=== PATIENT | female | born 1990 | race Caucasian/White ===

== ENCOUNTER 2016-12-30 21:43 | Emergency (ER) | payer BC ==
--- NOTE | 2016-12-30 22:31 | ED ---
Lower Extremity - HPI Summary HPI Summary: Patient was walking and inverted her left ankle. She had immediate pain but was able to hobble on it. It continued to be painful and became swollen so she came in for evaluation. She denies N/T. - History of Current Complaint Chief Complaint: EDExtremityLower Stated Complaint: LEFT ANKLE INJURY Time Seen by Provider: 12/30/16 21:51 Hx Obtained From: Patient Mechanism Of Injury: Twisted Onset of Pain: Immediate Onset/Duration: Hours Severity Initially: Mild Severity Currently: Moderate Pain Intensity: 4 Timing: Constant Location: Is Discrete @ - left ankle Character Of Pain: Dull, Aching, Stiffness Associated Signs And Symptoms: Positive: Swelling Aggravating Factor(s): Ambulation, Movement Able to Bear Weight: Yes - with pain - Allergies/Home Medications Allergies/Adverse Reactions: Allergies Allergy/AdvReac Type Severity Reaction Status Date / Time No Known Allergies Allergy Verified 10/14/15 09:51 PMH/Surg Hx/FS Hx/Imm Hx Musculoskeletal History: Reports: Other Musculoskeletal History - patellar subluxation x approx. 10: obesity Infectious Disease History: Denies: Traveled Outside the [place] in Last 30 Days - Family History Known Family History: Positive: Hypertension - Social History Occupation: Employed Part-time Lives: With Family Alcohol Use: None Substance Use Type: Reports: None Smoking Status (MU): Never Smoked Tobacco Review of Systems Positive: Myalgia, Decreased ROM, Edema Negative: Bruising Negative: Paresthesia, Numbness All Other Systems Reviewed And Are Negative: Yes Physical Exam Triage Information Reviewed: Yes Vital Signs On Initial Exam: Initial Vitals Temp Pulse Resp BP Pulse Ox 97.8 F 68 18 128/72 100 12/30/16 21:47 12/30/16 21:47 12/30/16 21:47 12/30/16 21:47 12/30/16 21:47 Vital Signs Reviewed: Yes Appearance: Positive: Well-Appearing, Pain Distress, Obese Skin: Positive: Warm, Skin Color Reflects Adequate Perfusion, Dry, Soft Head/Face: Positive: Normal Head/Face Inspection Eyes: Positive: EOMI, AMAN, Conjunctiva Clear ENT: Positive: Hearing grossly normal Respiratory/Lung Sounds: Positive: Breath Sounds Present Cardiovascular: Positive: RRR Musculoskeletal: Positive: Limited @ - movement in all four planes is painful, Pain @ - TTP lateral malleoli, Edema Left - lateral ankle Neurological: Positive: Sensory/Motor Intact, Alert, Oriented to Person Place, Time, NV Bundle Intact Distally Psychiatric: Positive: Affect/Mood Appropriate AVPU Assessment: Alert Diagnostics - Vital Signs Vital Signs Temp Pulse Resp BP Pulse Ox 12/30/16 21:47 97.8 F 68 18 128/72 100 - Laboratory Lab Statement: Any lab studies that have been ordered have been reviewed, and results considered in the medical decision making process. - Radiology No standard instances Xray Interpretation: No Acute Changes Radiology Interpretation Completed By: Radiologist Lower Extremity Course/Dx - Diagnoses Differential Diagnosis/HQI/PQRI: Positive: Arthritis, Bursitis, Contusion, Fracture (Closed), Sprain, Strain Provider Diagnoses: Left ankle sprain Discharge - Discharge Plan Condition: Stable Disposition: HOME Patient Education Materials: Ankle Sprain (ED), Ankle Stirrup Splint (ED) Referrals: Nicci Estevez MD [Primary Care Provider] - Additional Instructions: Wear your splint to protect you as your pain improves. Come out of the splint several times daily to perform gentle range of motion exercises to avoid stiffness. Elevate your ankle above your heart and apply ice for 20 minutes several times daily to decrease swelling and pain. Use ibuprofen 600mg three times daily with meals for the next 3-5 days to decrease swelling and pain as well. Follow-up with your primary care provider if your symptoms do not begin to improve in the next 5-7 days for evaluation. Return to the emergency department if your symptoms worsen.
--- NOTE | 2016-12-30 22:45 | RAD ---
Indication: Left Ankle swelling and pain. 3 views of left ankle demonstrates no fracture. No other bone or joint abnormalities noted. Soft tissue swelling is noted laterally. IMPRESSION: NO DEFINITE FRACTURE IS NOTED. SOFT TISSUE SWELLING IS NOTED LATERALLY.
[2016-12-30 23:11] VITALS: BP 116/77
== END 2016-12-30 23:05 | disposition home or self-care (01) ==
LOC: ED 21:43
DX: S93.402A Sprain of unspecified ligament of left ankle, initial encounter (principal); X58.XXXA Exposure to other specified factors, initial encounter; Y93.9 Activity, unspecified; Y92.9 Unspecified place or not applicable
CPT/HCPCS: 99282

== ENCOUNTER 2017-10-04 10:14 | Emergency (ER) | payer BC ==
--- NOTE | 2017-10-04 12:07 | ED ---
Throat Pain/Nasal Congestion - HPI Summary HPI Summary: Patient presents to the ED with the chief complaint of left ear pain. Pain is been present for 2 days. She notes a 6 out of 10 pain with slight amount of pressure. Pain is located behind the ear just inferior to the mastoid and radiates down approximately 2 cm towards the neck. Recent URI, but denies any other illness. Takes no medications. Has taken ibuprofen once without much relief. She has been otherwise healthy. Denies any shortness of breath or cough. Denies decreased hearing. 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: obesity - Immunization History Hx Pertussis Vaccination: No Immunizations Up to Date: Unable to Obtain/Confirm Infectious Disease History: No Infectious Disease History: Denies: Traveled Outside the [place] in Last 30 Days - Family History Known Family History: Positive: Hypertension - Social History Occupation: Employed Full-time Lives: With Family Alcohol Use: None Hx Substance Use: No Substance Use Type: Reports: None Hx Tobacco Use: No Smoking Status (MU): Never Smoked Tobacco Review of Systems Constitutional: Negative Negative: Fever, Chills, Fatigue, Skin Diaphoresis Eyes: Negative Positive: Ear Ache Cardiovascular: Negative Genitourinary: Negative Positive: no symptoms reported, see HPI Musculoskeletal: Negative Neurological: Negative All Other Systems Reviewed And Are Negative: Yes Physical Exam Triage Information Reviewed: Yes Vital Signs On Initial Exam: Initial Vitals Temp Pulse Resp BP Pulse Ox 97.5 F 81 18 136/86 96 10/04/17 10:23 10/04/17 10:23 10/04/17 10:23 10/04/17 10:23 10/04/17 10:23 Vital Signs Reviewed: Yes Appearance: Positive: Well-Appearing, Well-Nourished Skin: Positive: Warm, Skin Color Reflects Adequate Perfusion Head/Face: Positive: Normal Head/Face Inspection Eyes: Positive: EOMI, AMAN, Conjunctiva Clear ENT: Positive: Hearing grossly normal, Pharynx normal, TMs normal, Uvula midline. Negative: Nasal congestion, Nasal drainage, TM bulging, TM dull, TM red, Tonsillar swelling, Tonsillar exudate, Trismus, Muffled voice, Dental tenderness, Sinus tenderness Neck: Positive: Supple, No Lymphadenopathy Respiratory/Lung Sounds: Positive: Clear to Auscultation, Breath Sounds Present Cardiovascular: Positive: Normal, RRR, Pulses are Symmetrical in both Upper and Lower Extremities Musculoskeletal: Positive: Normal, Strength/ROM Intact Neurological: Positive: Speech Normal Psychiatric: Positive: Normal, Affect/Mood Appropriate AVPU Assessment: Alert Diagnostics - Vital Signs Vital Signs Temp Pulse Resp BP Pulse Ox 10/04/17 10:23 97.5 F 81 18 136/86 96 - Laboratory Lab Statement: Any lab studies that have been ordered have been reviewed, and results considered in the medical decision making process. EENT Course/Dx - Course Course Of Treatment: During the course of treatment, the patient is evaluated for the left ear pain. Denies any right ear pain. On examination the TMs are normal, without erythema to the canal or bulging. There does not appear to be ear effusions or signs of infection. Likely the ear is draining which is the cause for posterior ear pain. She is given prednisone and allergy medication for relief. She is okay with this plan and discharged. She will is referred back to her PCP for further evaluation. - Diagnoses Provider Diagnoses: Earache Discharge - Discharge Plan Condition: Stable Disposition: HOME Prescriptions: Loratadine [Claritin 10 MG CAP] 10 mg PO DAILY #15 cap predniSONE TAB* [Deltasone TAB*] 50 mg PO DAILY #5 tab MDD 1 Patient Education Materials: Earache (ED) Forms: *Work Release Referrals: Nicci Estevez MD [Primary Care Provider] - Additional Instructions: All day Please follow up with PCP for any worsening or changing symptoms Prednisone 50 mg 5 days Claritin 1 times daily 10 days
[2017-10-04 12:15] VITALS: BP 122/70
== END 2017-10-04 12:12 | disposition home or self-care (01) ==
LOC: ED 10:14
DX: H92.02 Otalgia, left ear (principal)
CPT/HCPCS: 99282